=== PATIENT | male | born 1995 | race Caucasian/White ===

== ENCOUNTER 2023-09-15 20:04 | Emergency (ER) | payer BC ==
--- NOTE | 2023-09-15 20:37 | ERPHSYRPT ---
- History of Present Illness Time Seen by Provider: 09/15/23 20:37 Source: patient Exam Limitations: no limitations Physician History: The patient, with a history of anxiety, presented with an episode of visual disturbances characterized by lines of flashing in his eye, preventing him from reading properly. The visual symptoms, which have occurred a few times in the past couple of months, were accompanied by dizziness and a sense of panic. The patient denied any associated pain in the eye or painful eye movements. He reported no recent illness, cough, congestion, nausea, vomiting, or significant dehydration. The patient also mentioned experiencing weakness and changes in speech during these episodes, which he attributed to his anxiety. He reported a family history of bipolar disorder and expressed concerns about potential serious conditions such as stroke. The patient also noted that he sometimes feel weak and dizzy if he does not consume sugar or eat within a certain time span, although he did not associate these symptoms with the visual disturbances. He denied any known issues with his blood sugar levels. 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 Timing/Duration: today Location: bilateral eyes Severity: moderate Apparent Injury: no Associated Symptoms: blurred vision, No pain, No burning, No itching, No sensitivity to light, No redness, No matting, No eyelid swelling, No foreign body sensation, No decreased vision, No double vision Visual Assistive Devices: Glasses Chemical Exposure: No Trauma: No Welding Arc/Tanning Bed Exposure: No Allergies/Adverse Reactions: No Known Drug Allergies Allergy (Verified 09/15/23 20:43) Home Medications: No Reportable Medications [No Reported Medications] 09/15/23 [History] Hx Tetanus, Diphtheria Vaccination/Date Given: Yes Hx Influenza Vaccination/Date Given: Yes (2011) Hx Pneumococcal Vaccination/Date Given: No - Review of Systems All Other Systems: Reviewed and Negative - Past Medical History Pertinent Past Medical History: Yes Neurological History: No Pertinent History ENT History: No Pertinent History Cardiac History: No Pertinent History Respiratory History: No Pertinent History Endocrine Medical History: No Pertinent History Musculoskeletal History: Other GI Medical History: GERD History: No Pertinent History Psycho-Social History: Anxiety Male Reproductive Disorders: No Pertinent History - Past Surgical History Past Surgical History: No - Social History Smoking Status: Never smoker Exposure to second hand smoke: No Drug Use: none Patient Lives Alone: No - Nursing Vital Signs Nursing Vital Signs: Initial Vital Signs Temperature 98.1 F 09/15/23 20:18 Pulse Rate 89 09/15/23 20:18 Respiratory Rate 16 09/15/23 20:18 Blood Pressure 125/94 09/15/23 20:18 O2 Sat by Pulse Oximetry 97 09/15/23 20:18 Pain Scale Pain Intensity 0 - Physical Exam General Appearance: no apparent distress, anxiety Vision Acuity Degree Evaluation Phase: Corrected Eye Exam: bilateral eye: normal inspection, PERRL, EOMI - Course Nursing assessment & vital signs reviewed: Yes Lab/Rad Data: Laboratory Results 09/15/23 Range/Units 20:22 POC Glucometer 116 H (74 to 106) mg/dL - Progress Progress: improved Counseled pt/family regarding: need for follow-up Medical Desision Making - Diagnostic Testing Diagnostic test were ordered, analyzed, and reviewed by me: No - Risk of complications Low Risk: Low risk of morbidity from additional dx testing or treatment - Departure Departure Disposition: Home Clinical Impression: Flashing lights seen, Alteration in vision, Anxiety about health Condition: Good Critical Care Time: No Referrals: ELADIO ROPER [Primary Care Provider] - Follow up/PCP as directed ADALBERTO SKAGGS MD [CONSULTING PHYSICIAN] - Follow up/PCP as directed Instructions: Tips to Help You Worry Less, Double Vision (DC)
[2023-09-15 20:40] VITALS: RESP 16; TEMP 98.1
[2023-09-15 20:59] VITALS: BP 126/85; PULSE 80; O2SAT 95
== END 2023-09-15 21:03 | disposition home or self-care (01) ==
LOC: ED 20:04
DX: H53.8 Other visual disturbances (principal); F45.9 Somatoform disorder, unspecified; R53.1 Weakness
CPT/HCPCS: 82947; 99282